=== PATIENT | female | born 1965 ===

== ENCOUNTER → 2019-07-22 | Emergency (ER) | payer OTHER ==
[~2019-07-22] VITALS: Ht 157.5 cm; Wt 52.2 kg
[~2019-07-22] MED LIST: MEDROL8 MG PO; THERAGRAN-M AD1 EACH; ZANTAC300 MG PO
== END | disposition home or self-care (01) ==
LOC: ER 02:41
DX: K20.8 Other esophagitis (principal); R13.19 Other dysphagia